=== PATIENT | male | born 1935 | race Caucasian/White ===

== ENCOUNTER 2017-07-01 16:54 | Emergency (ER) | payer MEDICARE ==
[~2017-07-01] VITALS: Ht 167.6 cm; Wt 82.0 kg
[~2017-07-01 16:54] MED LIST: ALFU10TA9 PO; Aspirin PO; Docusate Sodium PO; FOLI-68 PO; GLIP10TA10 PO; LOVA20TA2 PO; METF500T PO; Nitroglycerin SL; OMEG1CAP66 PO; OMEP20CA10 PO; PIOG30TA10 PO; SPIR50TA26 PO
[2017-07-01 17:41] VITALS: BP 150/68
== END 2017-07-01 18:42 | disposition home or self-care (01) ==
LOC: ER 18:31
DX: I10 Essential (primary) hypertension (principal); E11.9 Type 2 diabetes mellitus without complications; Z95.0 Presence of cardiac pacemaker
CPT/HCPCS: 99283

== ENCOUNTER 2018-03-18 18:06 | Emergency (ER) | payer MEDICARE ==
[~2018-03-18] VITALS: Ht 162.6 cm; Wt 81.0 kg
[2018-03-19 01:19] VITALS: BP 132/70
== END 2018-03-19 01:43 | disposition home or self-care (01) ==
LOC: ER 18:06
DX: M25.571 Pain in right ankle and joints of right foot (principal); R21 Rash and other nonspecific skin eruption; E11.9 Type 2 diabetes mellitus without complications; I10 Essential (primary) hypertension; E78.00 Pure hypercholesterolemia, unspecified; Z95.0 Presence of cardiac pacemaker; Z79.82 Long term (current) use of aspirin
CPT/HCPCS: 73610; 93971; 99284

== ENCOUNTER 2022-03-04 16:26 | Emergency (ER) | payer MEDICARE ==
[~2022-03-04] VITALS: Ht 167.6 cm; Wt 84.0 kg
[~2022-03-04 16:26] MED LIST changes: -OMEP20CA10 PO; +OMEP20CA14 PO; -SPIR50TA26 PO; +SPIR50TA5 PO
[2022-03-04] MEDS ORDERED: IBUPROFEN 600MG TABLET PO STA (18:19)
[2022-03-04 19:06] VITALS: BP 150/55
[2022-03-04] MEDS ORDERED: BACITRACIN ZINC OINT UDPKT TOP ONE (19:45)
[2022-03-04] MEDS ORDERED: BO1 TP (19:49)
== END 2022-03-04 19:59 | disposition home or self-care (01) ==
LOC: ER 16:26
DX: S09.8XXA Other specified injuries of head, initial encounter (principal); E11.9 Type 2 diabetes mellitus without complications; I10 Essential (primary) hypertension; E78.00 Pure hypercholesterolemia, unspecified; Z95.0 Presence of cardiac pacemaker; Z79.84 Long term (current) use of oral hypoglycemic drugs; W01.0XXA Fall on same level from slipping, tripping and stumbling without subsequent striking against object, initial encounter; Y93.89 Activity, other specified; Y92.012 Bathroom of single-family (private) house as the place of occurrence of the external cause
CPT/HCPCS: 99284

== ENCOUNTER 2025-10-20 14:23 | Inpatient (IN) | payer MEDICARE, OTHER ==
[~2025-10-20] VITALS: Ht 157.5 cm; Wt 72.6 kg
[~2025-10-20 14:23] MED LIST changes: +ALFU10TA46 PO; -ALFU10TA9 PO; +APIX2.5T MT; +ASPI-1160 PO; -Aspirin PO; +BREX1TAB PO; +DAPA10TA MT; -Docusate Sodium PO; -FOLI-68 PO; +FURO40TA5 MT; -GLIP10TA10 PO; +INSU100I24 SUBCUT; +LOVA20TA2 MT; -LOVA20TA2 PO; +MEMA1CAP4 PO; +MESA0.374 PO; +METF-416 PO; -METF500T PO; +MULT-1146 MT; -Nitroglycerin SL; -OMEG1CAP66 PO; -OMEP20CA14 PO; +PENT400T16 MT; -PIOG30TA10 PO; +SPIR50TA5 MT; -SPIR50TA5 PO; +VANC125C11 MT
[2025-10-20 14:37] VITALS: O2SAT 97
[2025-10-20 15:27] LABS: BASOPHILS % 1.0 % (0.0-2.0); EOSINOPHILS % 2.9 % (0.0-5.0); HEMATOCRIT. 32.7 % (42.0-52.0); HEMOGLOBIN. 10.5 g/dL (14.0-18.0); LYMPHOCYTES % 12.6 % (20.0-50.0); MEAN PLATELET VOLUME 7.3 fl (7.4-10.4); MONOCYTES % 7.7 % (2.0-8.0); NEUTROPHILS % 75.8 % (40.0-76.0); PLATELET 440 x1000/uL (130-400); RED BLOOD CELL COUNT 3.66 mill/uL (4.7-6.1); RED CELL DISTRIBUTION WIDTH 15.8 % (11.6-14.6)
[2025-10-20 15:40] LABS: CREATININE 1.1 mg/dL (0.6-1.3); UREA NITROGEN BLOOD 35 mg/dL (9-23)
[2025-10-20] MEDS: PIPERACILLIN/TAZO 3.375G/50ML 50 ML IV ONE (16:46)
[2025-10-20] MEDS: SODIUM CHLORIDE 0.9% (SEPSIS BOLUS) IV ONE (16:47)
[2025-10-20 17:05] LABS: INR 0.9
[2025-10-20 17:08] LABS: PROTEIN TOTAL 6.9 g/dL (6.0-8.3)
[2025-10-20 17:10] LABS: ASPARTATE AMINOTRANSFERASE 10 IU/L (<34); BILIRUBIN DIRECT < 0.1 mg/dL (<=3.0); BILIRUBIN TOTAL 0.3 mg/dL (0.1-1.0); TROPONIN I HIGH SENSITIVITY 7 ng/L (3.0-53)
[2025-10-20] MEDS: VANCOMYCIN 1G PREMIX 200 ML IV ONE (17:34)
[2025-10-20] MEDS ORDERED: ONDANSETRON HCL 4MG/2ML INJ IV PRN (19:30)
[2025-10-20] MEDS ORDERED: DEXTROSE 50% WATER 50ML SYRINGE IV PRN (19:30)
[2025-10-20] MEDS ORDERED: ENOXAPARIN 40MG/0.4ML SYR SUBCUT SCH (19:30)
[2025-10-20] MEDS ORDERED: MAGNESIUM/ALUMINUM HYDROXIDE/SIMETHICONE 30ML UDC PO PRN (19:30)
[2025-10-20] MEDS: BLOOD SUGAR DIAGNOSTIC STRIP TEST SCH (21:00)
[2025-10-20 22:10] VITALS: BP 125/45; PULSE 63; RESP 18; TEMP 35.9732
[2025-10-20] MEDS ORDERED: IOHEXOL-350 100 ML BOTTLE ONE (23:38)
[2025-10-21] VITALS: BP 145/59; PULSE 65; RESP 18; TEMP 36.2; O2SAT 100
[2025-10-21] MEDS: INSULIN LISPRO 100 UNITS/ML SUBCUT SCH (02:38)
[2025-10-21] MEDS: DEXT 5%/0.45% NACL 1000ML 1,000 ML IV SCH (03:05)
[2025-10-21] MEDS ORDERED: VANCOMYCIN 500MG PREMIX 100 ML IV SCH (03:30)
[2025-10-21 04:05] VITALS: BP 166/59; PULSE 75; RESP 19; TEMP 37; O2SAT 98
[2025-10-21] MEDS: CLONIDINE 0.1MG TABLET PO PRN (04:58)
[2025-10-21] MEDS: VANCOMYCIN 500MG PREMIX 100 ML IV SCH (04:59)
[2025-10-21] MEDS: PIPERACILLIN/TAZO 3.375G/50ML 50 ML IV SCH (06:50)
[2025-10-21 08:18] VITALS: BP 128/49; PULSE 61; RESP 20; TEMP 35.8; O2SAT 98
[2025-10-21] MEDS: ENOXAPARIN 40MG/0.4ML SYR SUBCUT SCH (09:39)
[2025-10-21] MEDS: PANTOPRAZOLE SODIUM 40 MG/VIAL IV SCH (09:42)
[2025-10-21] MEDS: ACETAMINOPHEN 325MG TABLET PO PRN (09:44)
[2025-10-21] MEDS ORDERED: NALOXONE HCL 0.4MG/ML VIAL IV PRN (10:15)
[2025-10-21 10:46] LABS: CLARITY URINE CLEAR (CLEAR); COLOR URINE YELLOW (YELLOW); GLUCOSE URINE 3+ (NEGATIVE); KETONES URINE NEGATIVE (NEGATIVE); LEUKOCYTE ESTERASE URINE NEGATIVE (NEGATIVE); NITRITE URINE NEGATIVE (NEGATIVE); OCCULT BLOOD URINE NEGATIVE (NEGATIVE); PH URINE 5.5 (4.5-8.0); PROTEIN URINE TRACE (NEGATIVE); SPECIFIC GRAVITY URINE 1.031 (1.005-1.030); UROBILINOGEN URINE 0.2 E.U./dL (0.2-1.0)
[2025-10-21] MEDS: MEMANTINE HCL 5MG TABLET PO SCH (10:51)
[2025-10-21 10:56] LABS: *AMPHETAMINES SCREEN URINE NEGATIVE (NEGATIVE)
[2025-10-21 10:58] LABS: *BARBITURATES SCREEN URINE NEGATIVE (NEGATIVE); *BENZODIAZEPINES SCREEN URINE NEGATIVE (NEGATIVE); *COCAINE SCREEN URINE NEGATIVE (NEGATIVE); CANNABINOID URINE SCREEN NEGATIVE (NEGATIVE); ECSTASY MDMA SCREEN URINE NEGATIVE (NEGATIVE); METHADONE URINE SCREEN NEGATIVE (NEGATIVE); OPIATES URINE SCREEN NEGATIVE (NEGATIVE); PHENCYCLIDINE URINE SCREEN NEGATIVE (NEGATIVE)
[2025-10-21 11:02] LABS: BACTERIA URINE NONE SEEN; RBC URINE 0-2 /hpf (0-2); SQUAMOUS EPITHELIAL CELL URINE 1+ /lpf (RARE/1+); WBC URINE 0-2 /hpf (0-2); YEAST URINE NONE SEEN
[2025-10-21] MEDS: TAMSULOSIN HCL 0.4MG SR CAPSULE PO SCH (11:02)
[2025-10-21] MEDS: HYDROCODONE/ACETAMINOPHEN 5/325MG TABLET PO PRN (11:42)
[2025-10-21 12:00] VITALS: BP 116/36; PULSE 61; RESP 20; TEMP 36.2; O2SAT 96
[2025-10-21] MEDS: PENTOXIFYLLINE 400MG TABLET PO SCH (12:45)
[2025-10-21 16:09] VITALS: BP 124/53; PULSE 61; RESP 18; TEMP 36.3; O2SAT 97
[2025-10-21 20:00] VITALS: BP 143/62; PULSE 66; RESP 19; TEMP 36.7; O2SAT 98
[2025-10-21] MEDS: ATORVASTATIN CALCIUM 20MG TABLET PO SCH (20:45)
[2025-10-21] MEDS ORDERED: VANCOMYCIN 1GM PMX (XELLIA) 200 ML IV SCH (21:00)
[2025-10-22] VITALS: BP 164/70; PULSE 84; RESP 18; TEMP 36.7; O2SAT 97
[2025-10-22 04:00] VITALS: BP 151/66; PULSE 61; RESP 18; TEMP 36.8; O2SAT 98
[2025-10-22 07:58] LABS: BASOPHILS % 0.8 % (0.0-2.0); EOSINOPHILS % 5.9 % (0.0-5.0); HEMATOCRIT. 31.4 % (42.0-52.0); HEMOGLOBIN. 10.4 g/dL (14.0-18.0); LYMPHOCYTES % 19.7 % (20.0-50.0); MEAN PLATELET VOLUME 7.3 fl (7.4-10.4); MONOCYTES % 8.2 % (2.0-8.0); NEUTROPHILS % 65.4 % (40.0-76.0); PLATELET 420 x1000/uL (130-400); RED BLOOD CELL COUNT 3.61 mill/uL (4.7-6.1); RED CELL DISTRIBUTION WIDTH 15.0 % (11.6-14.6)
[2025-10-22 08:00] VITALS: BP 143/77; PULSE 61; RESP 20; TEMP 37.1; O2SAT 98
[2025-10-22 08:01] LABS: CREATININE 0.9 mg/dL (0.6-1.3); UREA NITROGEN BLOOD 16 mg/dL (9-23)
[2025-10-22] MEDS: FUROSEMIDE 40MG TABLET PO SCH (10:44)
[2025-10-22] MEDS: ASPIRIN 81MG TABLET PO SCH (10:46)
[2025-10-22] MEDS: SPIRONOLACTONE 50MG TABLET PO SCH (11:04)
[2025-10-22 12:00] VITALS: BP 116/53; PULSE 61; RESP 20; TEMP 37.1; O2SAT 95
[2025-10-22 16:00] VITALS: BP 117/74; PULSE 61; RESP 22; TEMP 36.3; O2SAT 98
[2025-10-22 20:00] VITALS: BP 131/55; PULSE 72; RESP 18; TEMP 36.8; O2SAT 98
[2025-10-22] MEDS: MORPHINE SULFATE 2 MG/ML INJ (NOT FOR IM USE) IV PRN (21:41)
[2025-10-22] MEDS: AMLODIPINE 2.5MG TABLET PO SCH (21:42)
[2025-10-23] VITALS: BP 143/58; PULSE 79; RESP 18; TEMP 36.5; O2SAT 97
[2025-10-23 04:00] VITALS: BP 136/54; PULSE 64; RESP 18; TEMP 36.7; O2SAT 98
[2025-10-23 07:37] LABS: BASOPHILS % 0.6 % (0.0-2.0); EOSINOPHILS % 3.9 % (0.0-5.0); HEMATOCRIT. 33.1 % (42.0-52.0); HEMOGLOBIN. 10.8 g/dL (14.0-18.0); LYMPHOCYTES % 19.2 % (20.0-50.0); MEAN PLATELET VOLUME 7.1 fl (7.4-10.4); MONOCYTES % 7.2 % (2.0-8.0); NEUTROPHILS % 69.1 % (40.0-76.0); PLATELET 460 x1000/uL (130-400); RED BLOOD CELL COUNT 3.82 mill/uL (4.7-6.1); RED CELL DISTRIBUTION WIDTH 15.0 % (11.6-14.6)
[2025-10-23 07:52] LABS: CREATININE 0.9 mg/dL (0.6-1.3); UREA NITROGEN BLOOD 20 mg/dL (9-23)
[2025-10-23 08:00] VITALS: BP 144/53; PULSE 62; RESP 18; TEMP 36.7; O2SAT 97
[2025-10-23] MEDS: SPIRONOLACTONE 25MG TABLET PO SCH (10:40)
[2025-10-23 12:00] VITALS: BP 138/50; PULSE 61; RESP 18; TEMP 36.8; O2SAT 95
[2025-10-23 20:47] VITALS: BP 98/68; PULSE 85; RESP 16; TEMP 36.7
[2025-10-23] MEDS: ZOLPIDEM TARTRATE 5MG TABLET PO PRN (21:45)
[2025-10-24] VITALS: BP 149/89; PULSE 70; RESP 16; TEMP 36.6
[2025-10-24 04:00] VITALS: BP 118/49; PULSE 69; RESP 16; TEMP 36.4
[2025-10-24 08:00] VITALS: BP 146/59; PULSE 85; RESP 14; TEMP 36.4; O2SAT 95
[2025-10-24] MEDS ORDERED: AMLO2.5T45 PO (10:44)
[2025-10-24 12:00] VITALS: BP 112/55; PULSE 68; RESP 16; TEMP 36.3; O2SAT 93
[2025-10-24 14:29] VITALS: BP 116/79; PULSE 16; RESP 15; TEMP 97.4
== END 2025-10-24 15:00 | disposition home health service (06) | DRG 299 ==
LOC: ER 14:23 → 7WST 18:44 → EDBEDREQTM 18:53 → EDBEDREQ 18:53
PROVIDERS: ADMIT Internal Medicine; ATTEND Internal Medicine
DX: E11.52 Type 2 diabetes mellitus with diabetic peripheral angiopathy with gangrene (principal); L89.153 Pressure ulcer of sacral region, stage 3; I10 Essential (primary) hypertension; F02.80 Dementia in other diseases classified elsewhere, unspecified severity, without behavioral disturbance, psychotic disturbance, mood disturbance, and anxiety; I08.0 Rheumatic disorders of both mitral and aortic valves; E11.621 Type 2 diabetes mellitus with foot ulcer; L97.329 Non-pressure chronic ulcer of left ankle with unspecified severity; L97.529 Non-pressure chronic ulcer of other part of left foot with unspecified severity; L22 Diaper dermatitis; R32 Unspecified urinary incontinence; Z95.0 Presence of cardiac pacemaker; N28.1 Cyst of kidney, acquired; E78.00 Pure hypercholesterolemia, unspecified; G30.9 Alzheimer's disease, unspecified; Z79.899 Other long term (current) drug therapy
CPT/HCPCS: 36415; 71045; 73630; 75635; 80048; 80076; 80305; 81003; 82962; 83605; 84145; 84484; 85025; 93005; 93306; 93923; 99291; J1650; J1815; J2270; J2470; J2543; J3373; J7030; Q9967